=== PATIENT | female | born 1990 | race Hispanic/Latino ===

== ENCOUNTER 2021-10-16 14:33 | Emergency (ER) | payer OTHER, MEDICAID ==
[~2021-10-16] VITALS: Ht 170.2 cm; Wt 65.8 kg
[2021-10-16] MEDS ORDERED: SOLU-MEDROL 125MG VIAL ONE (14:47)
[2021-10-16] MEDS ORDERED: SOLU-MEDROL 40MG VIAL ONE (14:47)
[2021-10-16] MEDS ORDERED: DiphenhydrAMINE HCL 50 MG/ML VIAL ONE (14:47)
[2021-10-16 14:56] LABS: BASOPHILS % (AUTO) 0.6 % (0.0-5.0); EOSINOPHILS % (AUTO) 1.5 % (0.0-8.0); HEMATOCRIT 43.5 % (36-48); LYMPHOCYTES % (AUTO) 33.4 % (21.0-51.0); MEAN CORPUSCULAR HEMOGLOBIN 33.5 pg (27.0-33.0); MEAN CORPUSCULAR HGB CONC 36.3 g/dL (32.0-36.0); MEAN CORPUSCULAR VOLUME 92.2 fL (79-99); NEUTROPHILS % (AUTO) 57.9 % (40.0-77.0); PLATELET COUNT (AUTO) 237 K/uL (130-400); RED BLOOD CELL COUNT(AUTO) 4.72 MIL/uL (4.00-5.50); RED CELL DISTRIBUTION WIDTH 12.3 % (11.0-15.5); WHITE BLOOD COUNT (AUTO) 8.6 K/uL (4.8-10.8)
[2021-10-16] MEDS ORDERED: SOLU-MEDROL 40MG VIAL IVP ONE (15:00)
[2021-10-16] MEDS ORDERED: DiphenhydrAMINE HCL 50 MG/ML VIAL IV ONE (15:00)
[2021-10-16 15:06] LABS: CREATININE 0.8 mg/dL (0.5-1.5); POTASSIUM 3.5 mmol/L (3.5-5.1)
[2021-10-16 16:55] VITALS: BP 132/72
== END 2021-10-16 17:04 | disposition home or self-care (01) ==
LOC: EDH 14:33
DX: F41.9 Anxiety disorder, unspecified (principal); T39.8X5A Adverse effect of other nonopioid analgesics and antipyretics, not elsewhere classified, initial encounter; G43.909 Migraine, unspecified, not intractable, without status migrainosus; F32.A Depression, unspecified; Z79.52 Long term (current) use of systemic steroids; Y92.89 Other specified places as the place of occurrence of the external cause
CPT/HCPCS: 36415; 80048; 84702; 85025; 93005; 96374; 96375; 99284; J1200; J2920; J2930

== ENCOUNTER 2023-11-18 15:55 | Emergency (ER) | payer BC, MEDICAID, OTHER ==
[~2023-11-18] VITALS: Ht 160 cm; Wt 70.8 kg
[2023-11-18 17:00] LABS: BASOPHILS # (AUTO) 0.04 K/uL (0.00-0.20); BASOPHILS % (AUTO) 0.6 % (0.0-5.0); EOSINOPHILS # (AUTO) 0.07 K/uL (0.00-0.70); EOSINOPHILS % (AUTO) 1.1 % (0.0-8.0); HEMATOCRIT 38.5 % (36-48); IMMATURE GRANULOCYTE ABSOLUTE 0.02 K/uL (0-1); LYMPHOCYTES % (AUTO) 31.4 % (21.0-51.0); MEAN CORPUSCULAR HEMOGLOBIN 28.2 pg (27.0-33.0); MEAN CORPUSCULAR HGB CONC 32.2 g/dL (32.0-36.0); MEAN CORPUSCULAR VOLUME 87.7 fL (79-99); MONOCYTES # (AUTO) 0.5 K/uL (0.1-1.0); MONOCYTES % (AUTO) 7.2 % (3.0-13.0); NEUTROPHILS # (AUTO) 3.8 K/uL (1.8-7.7); NEUTROPHILS % (AUTO) 59.4 % (40.0-77.0); PLATELET COUNT (AUTO) 240 K/uL (130-400); RED BLOOD CELL COUNT(AUTO) 4.39 MIL/uL (4.00-5.50); RED CELL DISTRIBUTION WIDTH 13.3 % (11.0-15.5); WHITE BLOOD COUNT (AUTO) 6.4 K/uL (4.8-10.8)
[2023-11-18 17:10] LABS: CREATININE 0.7 mg/dL (0.5-1.5); POTASSIUM 4.2 mmol/L (3.5-5.1)
[2023-11-18 17:15] LABS: ALBUMIN 3.7 g/dL (3.5-5.0); BILIRUBIN,TOTAL 0.2 mg/dL (0.2-1.0); TOTAL PROTEIN, SERUM 7.9 g/dL (6.0-8.3)
[2023-11-18 17:28] LABS: APPEARANCE,URINE CLEAR (CLEAR); BILIRUBIN,URINE NEGATIVE (NEGATIVE); COLOR,URINE COLORLESS (YELLOW); GLUCOSE, URINE (UA) NEGATIVE (NEGATIVE); KETONES,URINE NEGATIVE (NEGATIVE); LEUKOCYTE ESTERASE ,URINE NEGATIVE Leu/uL (NEGATIVE); NITRATE,URINE NEGATIVE (NEGATIVE); OCCULT BLOOD,URINE SMALL (NEGATIVE); PH,URINE 5.5 (5.0-8.0); PROTEIN,URINE NEGATIVE (NEGATIVE); UROBILINOGEN,URINE 0.2 mg/dL (0.2-1.0)
[2023-11-18 17:33] LABS: ADD UA MICROSCOPIC YES
[2023-11-18 17:36] LABS: HCG,QUALITATIVE URINE NEGATIVE (NEGATIVE)
[2023-11-18] MEDS ORDERED: IOHEXOL-350 75 ML VIAL IV ONE (18:27)
[2023-11-18] MEDS ORDERED: CEFTRIAXONE 1G VIAL IVPB ONE (18:30)
[2023-11-18] MEDS ORDERED: KETOROLAC 30MG VIAL (30MG/ML) IVP ONE (18:30)
[2023-11-18] MEDS ORDERED: 0.9% NACL 500ML IV.SOLN 500 ML IV SCH (18:30)
[2023-11-18 19:52] VITALS: BP 125/63; PULSE 78; RESP 14; O2SAT 98
[2023-11-18] MEDS ORDERED: DOXY100C5 PO (20:11)
[2023-11-18] MEDS ORDERED: CEPH500B PO (20:11)
== END 2023-11-18 20:22 | disposition home or self-care (01) ==
LOC: EDH 15:55
DX: S39.011A Strain of muscle, fascia and tendon of abdomen, initial encounter (principal); N72 Inflammatory disease of cervix uteri; X58.XXXA Exposure to other specified factors, initial encounter; Y93.89 Activity, other specified; Y92.89 Other specified places as the place of occurrence of the external cause; Y99.8 Other external cause status
CPT/HCPCS: 99284; 74177; 96374; 96375; 80053; 85025; 87210; 87797; 87486; 81001; 81025; 36415; J7040; J0696; J1885; Q9967